=== PATIENT | male | born 1990 | race Caucasian/White ===

== ENCOUNTER → 2023-03-13 16:53 | Outpatient (BNVA) | payer MEDICAID, SELFPAY | PROVIDERS: PCP Registered Nurse; Visit Provider Nurse Practitioner Family | DX: R39.9 Unspecified symptoms and signs involving the genitourinary system (principal); R30.9 Painful micturition, unspecified; Z20.2 Contact with and (suspected) exposure to infections with a predominantly sexual mode of transmission; R36.9 Urethral discharge, unspecified; I10 Essential (primary) hypertension | CPT/HCPCS: 81000; 87086; 87491; 87591 ==